=== PATIENT | male | born 1955 | race Caucasian/White ===

== ENCOUNTER 2021-11-08 09:00 | Day surgery (SDC) | payer OTHER ==
[2021-11-04 12:10] VITALS: BMI 29.0
[~2021-11-08 09:00] MED LIST: LIDOCAINE 1% (10MG/ML) FOR IV START INTRADERMA PRN
[2021-11-08 09:42] VITALS: RESP 16; TEMP 97.8
[2021-11-08] MEDS: LACTATED RINGERS 1,000 ML IV SCH ×2 (09:56→10:41)
[2021-11-08] MEDS ORDERED: PROPOFOL 10 MG/ML 20 ML VIAL IV ONE (10:42)
--- NOTE | 2021-11-08 11:03 | P.PCN ---
Date of Procedure: 11/08/21 Procedure(s) Performed: BRIEF HISTORY: Patient is a 66-year-old pleasant male scheduled for an elective colonoscopy as a part of evaluation of Hemoccult-positive stool in last coloscopy was 10 years ago. PROCEDURE PERFORMED: Colonoscopy with biopsy. PREOPERATIVE DIAGNOSIS: Hemoccult positive stool. IV sedation per Anesthesia. PROCEDURE: After informed consent was obtained, the patient, was brought into the endoscopy unit. IV sedation was administered by Anesthesia under continuous monitoring. Digital rectal examination was normal. Initially the Olympus CF-160 flexible video colonoscope was then inserted in the rectum, gradually advanced into the cecum without any difficulty. Careful examination was performed as the scope was gradually being withdrawn. Ileocecal valve and the appendiceal orifice were visualized and appeared normal. Prep was fair.. In the base of the cecum there was a 3-4 mm sessile polyp removed by cold biopsy. Mucosa of the cecum, ascending colon, transverse colon, descending colon, sigmoid colon, and rectum appeared normal. Retroflexion was performed in the rectum and no lesions were seen. The patient tolerated the procedure well. IMPRESSION: 3-4 mm cecal polyp status post cold biopsy Rest of the colon appeared normal RECOMMENDATIONS: Findings of this examination were discussed with the patient as well as his family. He was advised to follow with the biopsy results. If the biopsy reveals an adenoma he can have a repeat colonoscopy in 5 years..
[2021-11-08 11:27] VITALS: BP 117/63; PULSE 73
== END 2021-11-08 11:44 | disposition home or self-care (01) ==
LOC: ORWHC2ENDO 09:00
PROVIDERS: ATTEND Internal Medicine Gastroenterology
DX: K63.5 Polyp of colon (principal); E78.5 Hyperlipidemia, unspecified; F17.200 Nicotine dependence, unspecified, uncomplicated; Z79.899 Other long term (current) drug therapy
CPT/HCPCS: 88305; 45380; J2704

== ENCOUNTER 2024-09-17 01:52 | Emergency (ER) | payer OTHER, MEDICARE ==
[2024-09-17 02:00] VITALS: RESP 18; TEMP 97.5
--- NOTE | 2024-09-17 02:37 | ED ---
Extremity Problem HPI - General Chief complaint: Extremity Problem,Nontraumatic Stated complaint: R shoulder pain Time Seen by Provider: 09/17/24 02:04 Source: patient, RN notes reviewed Mode of arrival: ambulatory Limitations: no limitations - History of Present Illness MD Complaint: extremity pain Onset/Timin -: days(s) Location: right, upper extremity History of Same: No -: Yes arthralgia Radiation: distal Severity scale (1-10): 9 Quality: aching, dull Consistency: constant Improves with: immobilization Worsens with: exertion, palpation Associated Symptoms: denies other symptoms - Related Data Home Medications Medication Instructions Recorded Confirmed HYDROcodone/APAP 10-325MG [[place] 0.5 tab PO Q6HR PRN 11/04/21 11/08/21 10-325] Lovastatin [Mevacor] 5 mg PO DAILY 11/04/21 11/08/21 Previous Rx's Medication Instructions Recorded Ibuprofen [Motrin] 800 mg PO Q8H PRN #30 tab 09/17/24 predniSONE 50 mg PO DAILY #5 tab 09/17/24 Allergies Allergy/AdvReac Type Severity Reaction Status Date / Time No Known Allergies Allergy Verified 09/17/24 02:00 Review of Systems ROS Statement: Those systems with pertinent positive or pertinent negative responses have been documented in the HPI. ROS Other: All systems not noted in ROS Statement are negative. Past Medical History Past Medical History: Hyperlipidemia, Osteoarthritis (OA) Additional Past Medical History / Comment(s): SHINGLES 2020 History of Any Multi-Drug Resistant Organisms: None Reported Past Surgical History: No Surgical Hx Reported Additional Past Surgical History / Comment(s): COLONOSCOPY AND WISDOM TEETH EXTRACTED Past Anesthesia/Blood Transfusion Reactions: No Reported Reaction Past Psychological History: No Psychological Hx Reported Smoking Status: Current every day smoker Past Alcohol Use History: None Reported Past Drug Use History: None Reported General Exam Limitations: no limitations Course Vital Signs 09/17/24 09/17/24 01:58 03:05 Temperature 97.5 F L Pulse Rate 67 81 Respiratory 18 18 Rate Blood Pressure 173/75 144/96 O2 Sat by Pulse 95 Oximetry Medical Decision Making - Medical Decision Making Was pt. sent in by a medical professional or institution (, PA, PHOTOGRAMMETRIC COMPILATION SPECIALIST, urgent care, hospital, or longterm...) When possible be specific @ -[No] Did you speak to anyone other than the patient for history (EMS, parent, family, police, friend...)? What history was obtained from this source @ -[No] Did you review nursing and triage notes (agree or disagree)? Why? @ -[I reviewed and agree with nursing and triage notes] Were old charts reviewed (outside hosp., previous admission, EMS record, old EKG, old radiological studies, urgent care reports/EKG's, longterm records)? Report findings @ -[No old charts were reviewed] Differential Diagnosis (chest pain, altered mental status, abdominal pain women, abdominal pain men, vaginal bleeding, weakness, fever, dyspnea, syncope, headache, dizziness, GI bleed, back pain, seizure, CVA, palpatations, mental health, musculoskeletal)? @ -Differential Musculoskeletal Muscular strain, contusion, ligament sprain, fracture, arthritis, septic arthritis, bursitis, cellulitis, muscle spasm, nerve compression, DVT, arterial occlusion, herpes zoster, electrolyte abnormality, tumor.... This is not meant to be in all inclusive list EKG interpreted by me (3pts min.). @ -Not done X-rays interpreted by me (1pt min.). @ -[None done] CT interpreted by me (1pt min.). @ -[None done] U/S interpreted by me (1pt. min.). @ -[None done] What testing was considered but not performed or refused? (CT, X-rays, U/S, labs)? Why? @ -[None] What meds were considered but not given or refused? Why? @ -[None] Did you discuss the management of the patient with other professionals (professionals i.e. , PA, PHOTOGRAMMETRIC COMPILATION SPECIALIST, lab, RT, psych nurse, social work job titles, member of parliament, teacher, radio division officer, case hardener)? Give summary @ -[No] Was smoking cessation discussed for >3mins.? @ -[No] Was critical care preformed (if so, how long)? @ -[No] Were there social determinants of health that impacted care today? How? (Homelessness, low income, unemployed, alcoholism, drug addiction, transportation, low edu. Level, literacy, decrease access to med. care, shelter, rehab)? @ -[No] Was there de-escalation of care discussed even if they declined (Discuss DNR or withdrawal of care, Hospice)? DNR status @ -[No] What co-morbidities impacted this encounter? (DM, HTN, Smoking, COPD, CAD, Cancer, CVA, ARF, Chemo, Hep., AIDS, mental health diagnosis, sleep apnea, morbid obesity)? @ -[None] Was patient admitted / discharged? Hospital course, mention meds given and route, prescriptions, significant lab abnormalities, going to OR and other pertinent info. @ -[hospital course] Undiagnosed new problem with uncertain prognosis? @ -[No] Drug Therapy requiring intensive monitoring for toxicity (Heparin, Nitro, Insulin, Cardizem)? @ -[No] Were any procedures done? @ -[No] Diagnosis/symptom? @ -Shoulder tendinitis Acute, or Chronic, or Acute on Chronic? @ -Acute Uncomplicated (without systemic symptoms) or Complicated (systemic symptoms)? @ -Uncomplicated Side effects of treatment? @ -[No] Exacerbation, Progression, or Severe Exacerbation? @ -[No] Poses a threat to life or bodily function? How? (Chest pain, [place], [place], pneumonia, PE, COPD, DKA, ARF, appy, cholecystitis, CVA, Diverticulitis, Homicidal, Suicidal, threat to staff... and all critical care pts) @ -[No] Disposition Clinical Impression: Tendinitis Disposition: HOME SELF-CARE Condition: Good Instructions (If sedation given, give patient instructions): Calcific Tendinitis (ED) Additional Instructions: Alternate Tylenol/Motrin every 4 hours for pain. Follow-up with orthopedics for any ongoing or worsening symptoms. Prescriptions: Ibuprofen [Motrin] 800 mg PO Q8H PRN #30 tab PRN Reason: Pain predniSONE 50 mg PO DAILY #5 tab Is patient prescribed a controlled substance at d/c from ED?: No Referrals: [facility],Clinic [REFERRING] - 1-2 days [facility] [Provider Group] - 1-2 days [facility] [Provider Group] - 1-2 days Time of Disposition: 03:33
[2024-09-17] MEDS: LIDOCAINE 4% PATCH TOPICAL ONE (02:41)
[2024-09-17] MEDS: HYDROmorphone 1 MG/ML 1 ML SYRINGE IM STA (02:42)
[2024-09-17] MEDS: methylPREDNISolone SOD SUCCI 125 MG/2 ML VIAL IM ONE (02:42)
[2024-09-17] MEDS: KETOROLAC 15 MG/ML 1 ML VIAL IM STA (02:42)
[2024-09-17 03:06] VITALS: BP 144/96; PULSE 81
--- NOTE | 2024-09-17 03:28 | XR ---
EXAM: XR Right Shoulder Complete, 2 or More Views CLINICAL HISTORY: ITS.REASON XR Reason: Right shoulder pain, no trauma TECHNIQUE: Two or more views of the right shoulder. COMPARISON: No relevant prior studies available. FINDINGS: Bones/joints: Hydroxyapatite deposition in the rotator cuff measures 1. 9 x 0.8 cm, correlate for calcific tendinitis. Osseous demineralization. No acute fracture. No dislocation. Soft tissues: Unremarkable. IMPRESSION: Hydroxyapatite deposition in the rotator cuff measures 1.9 x 0.8 cm, correlate for calcific tendinitis.
== END 2024-09-17 03:42 | disposition home or self-care (01) ==
LOC: EC 01:52
DX: M77.8 Other enthesopathies, not elsewhere classified (principal); F17.200 Nicotine dependence, unspecified, uncomplicated
CPT/HCPCS: 73030; 99283; 96372 ×3; J1171; J1885; J2919